=== PATIENT | female | born 1965 | race Caucasian/White ===

== ENCOUNTER 2017-04-19 15:30 | Emergency (ER) | payer MEDICAID ==
[~2017-04-19] VITALS: Ht 172.7 cm; Wt 100.7 kg
[2017-04-19 17:56] VITALS: BP 214/113
== END 2017-04-19 18:13 | disposition home or self-care (01) ==
LOC: ED 16:30
DX: J20.8 Acute bronchitis due to other specified organisms (principal); B96.89 Other specified bacterial agents as the cause of diseases classified elsewhere; I10 Essential (primary) hypertension; E11.9 Type 2 diabetes mellitus without complications
CPT/HCPCS: 71020; 99284

== ENCOUNTER 2018-11-25 17:20 | Emergency (ER) | payer MEDICAID, OTHER ==
[~2018-11-25] VITALS: Ht 172.7 cm; Wt 100.0 kg
[2018-11-25 17:35] VITALS: BP 190/115
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
--- NOTE | 2018-11-25 18:15 | NUR ---
PATIENT WALKING UP FAITH WITH STEADY GAIT REQUESTING RADIOLOGY, NOTIFIED PATIENT TO RETURN TO ROOM AND RADIOLOGY WILL COME TO HER.
--- NOTE | 2018-11-25 19:08 | NUR ---
PATIENT UP AT NURSES DESK STATING SHE IS LEAVING, ENCOURAGED PATIENT TO WAIT FOR XRAY RESULTS. PATIENT STATING "I FEEL BETTER NOW AND JUST WANT TO LEAVE", PATIENT AMB WITH STEADY GAIT TO DC DESK.
--- NOTE | 2018-11-25 19:10 | NUR ---
PATIENT LEFT PRIOR TO RECEIVING PAIN MEDICATION.
[2018-11-25] MEDS ORDERED: ACETAMINOPHEN 500 MG TABLET PO ONE (19:30)
== END 2018-11-25 19:10 | disposition left against medical advice (07) ==
LOC: ED 19:04
DX: S19.9XXA Unspecified injury of neck, initial encounter (principal); I10 Essential (primary) hypertension; E11.9 Type 2 diabetes mellitus without complications; V53.6XXA Passenger in pick-up truck or van injured in collision with car, pick-up truck or van in traffic accident, initial encounter; Y93.89 Activity, other specified; Y92.89 Other specified places as the place of occurrence of the external cause; Y99.8 Other external cause status
CPT/HCPCS: 72050; 99283